=== PATIENT | male | born 1970 | race Caucasian/White ===

== ENCOUNTER 2017-10-14 12:57 | Emergency (ER) | payer OTHER ==
[2017-10-14] MEDS ORDERED: HYDROmorphone 1 MG/ML SYRINGE IM STA (14:16)
[2017-10-14] MEDS ORDERED: KETOROLAC 60 MG/2 ML VIAL IM STA (14:16)
[2017-10-14] MEDS ORDERED: TRIAMCINOLONE 40 MG/ML VIAL IM STA (14:16)
[2017-10-14] MEDS ORDERED: BUPIVACAINE 0.5%-EPI 1:200000 PF 30 ML VIAL SUBQ ONE (14:16)
--- NOTE | 2017-10-14 14:18 | ED Physician Documentation ---
PD HPI BACK PAIN - Stated complaint Stated Complaint: LOWER BACK PX - Chief complaint Chief Complaint: Back Pain - History obtained from History obtained from: Patient, Family - History of Present Illness Timing - onset: Other (He has chronic sharp back pain in the low back radiating to the right which is much worse over the last few days. He has recently been in physical therapy for same and has lidocaine patches which are not helping. He has tingling going down the right leg which is new but no saddle anesthesia or fevers, no incontinence.) Review of Systems Constitutional: denies: Fever, Chills Nose: denies: Rhinorrhea / runny nose, Congestion Cardiac: denies: Chest pain / pressure, Palpitations Respiratory: denies: Dyspnea, Cough PD PAST MEDICAL HISTORY - Past Medical History Past Medical History: Yes Endocrine/Autoimmune: Type 2 diabetes - Past Surgical History Past Surgical History: Yes - Present Medications Home Medications: Ambulatory Orders Medication Instructions Recorded Confirmed Alprazolam [Xanax] 6 mg PO DAILY 10/14/17 Aspirin 81 mg PO DAILY 10/14/17 Atorvastatin [Lipitor] 10 mg PO DAILY 10/14/17 Cyclobenzaprine [Flexeril] 10 mg PO TID PRN #20 tablet 10/14/17 Divalproex Sodium [Depakote] 1,000 mg PO BID 10/14/17 Levothyroxine [Synthroid] 25 mg PO DAILY 10/14/17 Lidocaine Patch 5% [Lidoderm Patch] 10/14/17 Meloxicam [Mobic] 7.5 mg PO BIDWM PRN #15 tablet 10/14/17 Oxycodone HCl/Acetaminophen 1 - 2 tab PO Q4H PRN #15 tablet 10/14/17 [Percocet 5-325 mg Tablet] Zolpidem Tartrate [Ambien] 20 mg PO DAILY PM 10/14/17 metFORMIN [Glucophage] 500 mg PO DAILY 10/14/17 - Allergies Allergies/Adverse Reactions: Allergies Allergy/AdvReac Type Severity Reaction Status Date / Time cephalexin [From Keflex] Allergy Anaphylaxis Verified 10/14/17 13:35 Penicillins Allergy Anaphylaxis Verified 10/14/17 13:35 - Social History Does the pt smoke?: Yes Smoking Status: Current every day smoker Does the pt drink ETOH?: No Does the pt have substance abuse?: No - Immunizations Immunizations are current?: Yes PD ED PE NORMAL - Vitals Vital signs reviewed: Yes - General General: Alert and oriented X 3, No acute distress - Abdomen Abdomen: Normal bowel sounds, Soft, Non tender - Back Back: Other (He is tender in the right sciatic notch, there is no deformity or midline tenderness. He winces with motion but is comfortable at rest. The patient has equal and normal Achilles and patellar reflexes bilaterally. Normal sensation in all areas of the legs. Patient denies saddle anesthesia. Normal strength in flexion-extension at the ankles, knees, and flexion of the hips.) - Neuro Neuro: Alert and oriented X 3, Normal speech Results - Vitals Vitals: Vital Signs - 24 hr 10/14/17 13:30 Temperature 36.7 C Heart Rate 90 Respiratory 18 Rate Blood Pressure 125/85 H O2 Saturation 97 Oxygen O2 Source Room air Procedures - General procedure General procedure: A trigger point injection was done in the right sciatic notch after alcohol prep utilizing 40 mg of triamcinolone mixed with 9 mL of 0.5% Marcaine with epinephrine. Departure - Departure Disposition: 01 Home, Self Care Clinical Impression: Sciatica Qualifiers: Laterality: right Qualified Code(s): M54.31 - Sciatica, right side Condition: Good Record reviewed to determine appropriate education?: Yes Instructions: ED Sciatica Prescriptions: Cyclobenzaprine [Flexeril] 10 mg PO TID PRN #20 tablet PRN Reason: Pain Meloxicam [Mobic] 7.5 mg PO BIDWM PRN #15 tablet PRN Reason: Pain Oxycodone HCl/Acetaminophen [Percocet 5-325 mg Tablet] 1 - 2 tab PO Q4H PRN #15 tablet PRN Reason: Pain Comments: Call your doctor to arrange a follow-up appointment, make the next available appointment. In the interim, return anytime if worse or if new symptoms develop. Do not drink or drive while taking narcotic pain medication. Note that many narcotic pain relievers also contain Tylenol/acetaminophen. Please ensure that your total dose of acetaminophen from all sources does not exceed 3 g (3000 mg) per day. You may get constipated while on this medication. Take a stool softener such as Colace twice a day while you are on it. Also add an tsee-dec-lmkfrkb laxative such as senna or MiraLAX on any day that you do not have a bowel movement. If you received a narcotic pain medication or sedative while in the emergency department, do not drive for the next 24 hours. Your blood pressure was elevated today on check into the emergency department. This does not mean that you have hypertension, it is a common phenomenon to come to the emergency department and have elevated blood pressure. I recommend that you see your primary care physician within the week to have it rechecked when you are feeling better.
[2017-10-14 14:41] VITALS: BP 155/106
[2017-10-14] MEDS ORDERED: BUPIVACAINE 0.5%-EPI 1:200000 PF 10 ML VIAL SUBQ ONE (15:00)
== END 2017-10-14 14:39 | disposition home or self-care (01) ==
LOC: ED 12:57
DX: M54.31 Sciatica, right side (principal); E11.9 Type 2 diabetes mellitus without complications; Z79.82 Long term (current) use of aspirin; F17.200 Nicotine dependence, unspecified, uncomplicated; Z79.84 Long term (current) use of oral hypoglycemic drugs
CPT/HCPCS: 20552; 96372; 99283; J1170

== ENCOUNTER 2017-11-14 07:50 | Outpatient (CLI) | payer OTHER ==
--- NOTE | 2017-11-14 09:13 | MRI Report ---
EXAM: MRI LUMBAR SPINE WITHOUT CONTRAST EXAM DATE: 11/14/2017 08:30 AM. CLINICAL HISTORY: 47-year-old with right-sided sciatica COMPARISON: None. TECHNIQUE: Multiplanar, multisequence T1-weighted and fluid-sensitive sequences of the lumbar spine f rom T12 to S1 without contrast. Other: None. FINDINGS: Spinal Cord: The conus terminates at L1-L2. The conus medullaris and cauda equina are unremarkable. Alignment: No definite scoliosis. There is 2-3 mm of grade 1 anterolisthesis of L5 on S1. Bone Marrow: Five big-yuw-gkexvci lumbar vertebral bodies are assumed. There is endplate edema seen a t L1-L2 and L2-L3 and to a lesser degree L3-L4 that may be degenerative in nature. No acute fracture. No marrow replacing lesion. Disk Levels/Facets: T12-L1: Unremarkable. L1-L2: Unremarkable. L2-L3: Mild loss of disk height and slight disk desiccation. Small posterior disk bulge and bilateral facet disease. No spinal canal stenosis. Minimal right and mild left neural foraminal narrowing. L3-L4: Mild loss of disk height. No significant disk desiccation. Small posterior disk bulge and bila teral facet disease. No spinal canal stenosis. Minimal bilateral neural foraminal narrowing. L4-L5: Mild loss of disk. No significant disk desiccation. Small posterior disk bulge and bilateral f acet disease. No spinal canal stenosis. Mild bilateral neural foraminal narrowing. L5-S1: Mild loss of disk height and slight disk desiccation. Small posterior disk bulge and bilateral facet disease. No spinal canal stenosis. Mild right and fxns-np-iipvkvww left neural foraminal narro wing. Musculature: Normal. No edema or fatty atrophy. Other: The partially visualized retroperitoneum is unremarkable. IMPRESSION: 1. There appears to be 2-3 mm of grade I anterolisthesis of L5 on S1. 2. There is edema seen along the superior endplates of L2, L3, L4 may be due to degenerative changes. 3. Multilevel degenerative changes with no high-grade areas of spinal canal stenosis. 4. Multilevel bilateral facet disease with mild to moderate neural foraminal narrowing at left L5-S1 and mild neural foraminal narrowing seen at left L2-L3, bilaterally at L4-L5, and right L5-S1. Comment: The following findings are so common in adults without low back pain that while we report th eir presence, they must be interpreted with caution and in the context of the clinical situation. (Re ander Chou et al, Spine 2001) Prevalence of findings in patients without low back pain: Disk degeneration (any evidence): 92% Disk desiccation/T2 signal loss: 83% Disk height loss: 56% Disk bulge: 64% Disk protrusion: 32% Annular tear/high intensity zone: 38% [facility] Referring Provider Line: [phone] SITE ID: [id number]
== END 2017-11-14 07:51 | disposition home or self-care (01) ==
LOC: DI 07:50
PROVIDERS: ATTEND Family Medicine
DX: M51.36 Other intervertebral disc degeneration, lumbar region (principal); M47.896 Other spondylosis, lumbar region; M51.37 Other intervertebral disc degeneration, lumbosacral region; M47.897 Other spondylosis, lumbosacral region; M43.17 Spondylolisthesis, lumbosacral region
CPT/HCPCS: 72148

== ENCOUNTER 2019-07-06 09:32 | Outpatient (CLI) | payer OTHER ==
[2019-07-06 12:34] LABS: BASOPHILS # (AUTO) 0.1 10^3/uL (0.0-0.1); BASOPHILS % (AUTO) 0.8 %; EOSINOPHILS # (AUTO) 0.1 10^3/uL (0.0-0.7); EOSINOPHILS % (AUTO) 1.1 %; HGB - HEMOGLOBIN 14.1 g/dL (14.0-18.0); LYMPHOCYTES # (AUTO) 2.5 10^3/uL (1.5-3.5); LYMPHOCYTES % (AUTO) 24.5 %; MEAN CORPUSCULAR HEMOGLOBIN 29.4 pg (27.0-31.0); MEAN CORPUSCULAR HGB CONC 32.8 g/dL (32.0-36.0); MEAN CORPUSCULAR VOLUME 89.8 fL (80.0-94.0); MEAN PLATELET VOLUME 12.8 fL (7.4-11.4); MONOCYTES % (AUTO) 9.4 %; NEUTROPHILS # (AUTO) 6.3 10^3/uL (1.5-6.6); PLT - PLATELET COUNT 158 10^3/uL (130-450); RED BLOOD COUNT 4.79 10^6/uL (4.70-6.10); RED CELL DISTRIBUTION WIDTH 12.8 % (12.0-15.0); WHITE BLOOD COUNT 10.2 x10^3/uL (4.8-10.8)
[2019-07-06 12:56] LABS: CALCIUM 9.4 mg/dL (8.5-10.3)
[2019-07-06 14:25] LABS: MICROALBUM/CREATININE RATIO,UR 5.3 ug/mg (<30.0); MICROALBUMIN,URINE 0.3 mg/dL (0-300.0)
[2019-07-06 15:45] LABS: HB2 TOTAL 14.3 g/dL; HEMOGLOBIN A1C 1.85 g/dL
[2019-07-06 18:46] LABS: ALBUMIN 3.8 g/dL (3.2-5.5); ALBUMIN/GLOBULIN RATIO 1.2 (1.0-2.2); BILIRUBIN,TOTAL 0.6 mg/dL (0.2-1.0)
== END 2019-07-06 23:59 | disposition home or self-care (01) ==
LOC: LAB.WCP 09:32
PROVIDERS: ATTEND Physician Assistant
DX: E11.9 Type 2 diabetes mellitus without complications (principal); E03.9 Hypothyroidism, unspecified
CPT/HCPCS: 36415; 80053; 82043; 82570; 83036; 84443; 85025

== ENCOUNTER 2019-07-19 07:57 | Outpatient (CLI) | payer OTHER ==
--- NOTE | 2019-07-19 16:12 | MRI Report ---
Reason: INTERNAL DERANGEMENT OF RT KNEE Procedure Date: 07/19/2019 Accession Number: [id number] / [id number] Procedure: MRI - Knee RT W/O CPT Code: Final Report FULL RESULT: EXAM: RIGHT KNEE MRI WITHOUT CONTRAST EXAM DATE: 07/19/2019 08:51 AM. CLINICAL HISTORY: Internal derangement of right knee. COMPARISON: None. TECHNIQUE: Multiplanar, multisequence T1-weighted and fluid-sensitive sequences of the knee without contrast. Other: None. FINDINGS: Cruciate ligaments: The anterior and posterior cruciate ligaments appear intact. Medial meniscus: Intact. No tear identified. Lateral meniscus: Intact. No tear identified. Collateral ligaments: There is some thickening and heterogenous signal at the anterior margin of the otherwise intact medial collateral ligament. Fibular collateral ligament appears intact. Bones and articular surfaces: Slight cartilage thinning and surface irregularity in the weightbearing medial and lateral compartment. Small amount of cartilage fissuring and irregularity at the medial trochlea with minimal subchondral edema. Minimal joint effusion. Extensor mechanism: The patellar tendon and quadriceps insertion appear intact. IMPRESSION: 1. Mild tricompartmental degenerative cartilage changes. 2. Some thickening and heterogenous signal involving upper fibers of the medial collateral ligament. Potentially scarring from previous injury. 3. Otherwise the menisci, cruciate and collateral ligaments appear intact. [facility]
== END 2019-07-19 07:58 | disposition home or self-care (01) ==
LOC: DI 07:57
PROVIDERS: ATTEND Physician Assistant
DX: M23.91 Unspecified internal derangement of right knee (principal); M17.11 Unilateral primary osteoarthritis, right knee

== ENCOUNTER 2019-07-27 14:57 | Emergency (ER) | payer OTHER ==
[2019-07-27] MEDS ORDERED: ELECTROLYTE-A SOLUTION 1,000 ML IV ONE (15:13)
--- NOTE | 2019-07-27 15:19 | ED Physician Documentation ---
History of Present Illness - Stated complaint Stated Complaint: CLAMMY SKIN/SYNCOPE - History obtained from History obtained from: Patient - History of Present Illness Timing: How many days ago (2-3) - Additonal information Additional information: 49-year-old male presents to the emergency department stating that his blood sugars been high for the past several days. He states his meter is been reading over 500 at home. Took Lantus today with no changes. Has had vomiting as well. No fevers. States today he felt lightheaded and dizzy when he stood up and then passed out. No head, neck or back pain. No abdominal pain. Worse with standing and better with rest. Review of Systems Ten Systems: 10 systems reviewed and negative Constitutional: denies: Fever, Chills Throat: denies: Sore throat Cardiac: denies: Chest pain / pressure Respiratory: denies: Cough GI: reports: Vomiting. denies: Diarrhea Skin: denies: Rash Musculoskeletal: denies: Neck pain, Back pain Neurologic: denies: Headache PD PAST MEDICAL HISTORY - Past Medical History Past Medical History: Yes Endocrine/Autoimmune: Type 2 diabetes - Past Surgical History Past Surgical History: Yes - Present Medications Home Medications: Ambulatory Orders Medication Instructions Recorded Confirmed Alprazolam [Xanax] 6 mg PO DAILY 10/14/17 Aspirin 81 mg PO DAILY 10/14/17 Atorvastatin [Lipitor] 10 mg PO DAILY 10/14/17 Cyclobenzaprine [Flexeril] 10 mg PO TID PRN #20 tablet 10/14/17 Divalproex Sodium [Depakote] 1,000 mg PO BID 10/14/17 Levothyroxine [Synthroid] 25 mg PO DAILY 10/14/17 Lidocaine Patch 5% [Lidoderm Patch] 10/14/17 Meloxicam [Mobic] 7.5 mg PO BIDWM PRN #15 tablet 10/14/17 Oxycodone HCl/Acetaminophen 1 - 2 tab PO Q4H PRN #15 tablet 10/14/17 [Percocet 5-325 mg Tablet] Zolpidem Tartrate [Ambien] 20 mg PO DAILY PM 10/14/17 metFORMIN [Glucophage] 500 mg PO DAILY 10/14/17 - Allergies Allergies/Adverse Reactions: Allergies Allergy/AdvReac Type Severity Reaction Status Date / Time cephalexin [From Keflex] Allergy Anaphylaxis Verified 07/27/19 15:18 Penicillins Allergy Anaphylaxis Verified 07/27/19 15:18 - Social History Does the pt smoke?: Yes Smoking Status: Current every day smoker Does the pt drink ETOH?: No Does the pt have substance abuse?: No - Immunizations Immunizations are current?: Yes PD ED PE NORMAL - Vitals Vital signs reviewed: Yes - General General: Alert and oriented X 3, No acute distress, Well developed/nourished - HEENT HEENT: PERRL, Moist mucous membranes, Other (dry lips and tongue) - Neck Neck: Supple, no meningeal sign - Cardiac Cardiac: RRR, Strong equal pulses - Respiratory Respiratory: No respiratory distress, Clear bilaterally - Abdomen Abdomen: Soft, Non tender, Non distended - Derm Derm: Warm and dry - Extremities Extremities: No edema - Neuro Neuro: Alert and oriented X 3 - Psych Psych: Normal mood, Normal affect Results - Vitals Vitals: Vital Signs - 24 hr 07/27/19 07/27/19 07/27/19 15:01 15:49 16:10 Temperature 36.1 C L Heart Rate 81 69 75 Respiratory 22 14 13 Rate Blood Pressure 183/97 H 133/80 H 133/80 H O2 Saturation 98 99 98 07/27/19 07/27/19 16:30 17:06 Temperature 36.7 C Heart Rate 70 78 Respiratory 16 23 Rate Blood Pressure 133/80 H 144/95 H O2 Saturation 97 98 Oxygen O2 Source Room air - EKG (time done) 1504 Rate: Rate (enter#) (83) Rhythm: NSR [place]: Normal Intervals: Normal HI QRS: Normal Ischemia: ST elevation c/w repol - Labs Labs: Laboratory Tests 07/27/19 07/27/19 07/27/19 15:14 15:14 15:22 WBC 14.4 H RBC 5.13 Hgb 15.0 Hct 44.3 MCV 86.4 MCH 29.2 MCHC 33.9 RDW 12.9 Plt Count 159 MPV 11.0 Neut # (Auto) 8.7 H Lymph # (Auto) 4.4 H [place] # (Auto) 0.9 Eos # (Auto) 0.1 Baso # (Auto) 0.1 Absolute Nucleated RBC 0.00 Nucleated RBC % 0.0 VBG pH 7.500 H VBG pCO2 33.7 L VBG pO2 43.9 VBG HCO3 25.7 VBG Total CO2 26.7 VBG O2 Saturation 87.5 H VBG Base Excess 3.1 H Sodium 131 L Potassium 4.0 Chloride 97 L Carbon Dioxide 21 Anion Gap 13.0 BUN 17 Creatinine 0.8 Estimated GFR (MDRD) 102 Glucose 448 H Calcium 10.0 Total Bilirubin 0.5 AST 17 ALT 14 Alkaline Phosphatase 64 Total Protein 7.1 Albumin 3.9 Globulin 3.2 Albumin/Globulin Ratio 1.2 Lipase 47 Urine Color Urine Clarity Urine pH Ur [place] Urine Protein Urine Glucose (UA) Urine Ketones Urine Occult Blood Urine Nitrite Urine Bilirubin Urine Urobilinogen Ur Leukocyte Esterase Ur Microscopic Review Urine Culture Comments Last Dose Date Last Dose Time Urine Opiates Screen Ur Oxycodone Screen Urine Methadone Screen Ur Propoxyphene Screen Ur Barbiturates Screen Valproic Acid Ur Tricyclics Screen Ur Phencyclidine Scrn Ur Amphetamine Screen U Methamphetamines Scrn U Benzodiazepines Scrn Urine Cocaine Screen U Cannabinoids Screen Serum Ketones NEGATIVE 07/27/19 07/27/19 15:22 16:13 WBC RBC Hgb Hct MCV MCH MCHC RDW Plt Count MPV Neut # (Auto) Lymph # (Auto) [place] # (Auto) Eos # (Auto) Baso # (Auto) Absolute Nucleated RBC Nucleated RBC % VBG pH VBG pCO2 VBG pO2 VBG HCO3 VBG Total CO2 VBG O2 Saturation VBG Base Excess Sodium Potassium Chloride Carbon Dioxide Anion Gap BUN Creatinine Estimated GFR (MDRD) Glucose Calcium Total Bilirubin AST ALT Alkaline Phosphatase Total Protein Albumin Globulin Albumin/Globulin Ratio Lipase Urine Color YELLOW Urine Clarity CLEAR Urine pH 6.5 Ur [place] 1.010 Urine Protein NEGATIVE Urine Glucose (UA) >=1000 H Urine Ketones TRACE Urine Occult Blood NEGATIVE Urine Nitrite NEGATIVE Urine Bilirubin NEGATIVE Urine Urobilinogen 0.2 (NORMAL) Ur Leukocyte Esterase NEGATIVE Ur Microscopic Review NOT INDICATED Urine Culture Comments NOT INDICATED Last Dose Date Not Reportable Last Dose Time Not Reportable Urine Opiates Screen NEGATIVE Ur Oxycodone Screen NEGATIVE Urine Methadone Screen NEGATIVE Ur Propoxyphene Screen NEGATIVE Ur Barbiturates Screen NEGATIVE Valproic Acid 88.0 Ur Tricyclics Screen NEGATIVE Ur Phencyclidine Scrn NEGATIVE Ur Amphetamine Screen NEGATIVE U Methamphetamines Scrn NEGATIVE U Benzodiazepines Scrn NEGATIVE Urine Cocaine Screen NEGATIVE U Cannabinoids Screen POSITIVE H Serum Ketones PD MEDICAL DECISION MAKING - ED course Complexity details: reviewed results, re-evaluated patient, considered differential, d/w patient, d/w family ED course: Patient feels much better after IV fluids. Blood sugar decreased with insulin. No evidence of hyperosmolar nonketotic state. No evidence of DKA. Tolerating p.o. without difficulty. We will have him follow-up with his doctor to adjust his insulin. Patient counseled regarding signs and symptoms for which I believe and urgent re-evaluation would be necessary. Patient with good understanding of and agreement to plan and is comfortable going home at this time This document was made in part using voice recognition software. While efforts are made to proofread this document, sound alike and grammatical errors may occur. Departure - Departure Disposition: 01 Home, Self Care Clinical Impression: Hyperglycemia, Dehydration, Vasovagal syncope Condition: Good Instructions: ED Hyperglycemia Diabetic, ED Dehydration, ED Syncope Vasovagal Follow-Up: Luly Rice PA [Primary Care Provider] - Within 3 Days Comments: Follow-up with your doctor within 3 days to readjust your medications. Return if you worsen. Discharge Date/Time: 07/27/19 17:18
[2019-07-27 15:33] LABS: BASOPHILS # (AUTO) 0.1 10^3/uL (0.0-0.1); BASOPHILS % (AUTO) 0.7 %; EOSINOPHILS # (AUTO) 0.1 10^3/uL (0.0-0.7); EOSINOPHILS % (AUTO) 0.8 %; LYMPHOCYTES # (AUTO) 4.4 10^3/uL (1.5-3.5); LYMPHOCYTES % (AUTO) 30.5 %; MEAN CORPUSCULAR HEMOGLOBIN 29.2 pg (27.0-31.0); MEAN CORPUSCULAR HGB CONC 33.9 g/dL (32.0-36.0); MEAN CORPUSCULAR VOLUME 86.4 fL (80.0-94.0); MONOCYTES # (AUTO) 0.9 10^3/uL (0.0-1.0); MONOCYTES % (AUTO) 6.2 %; NEUTROPHILS # (AUTO) 8.7 10^3/uL (1.5-6.6); NEUTROPHILS % (AUTO) 60.5 %; PLT - PLATELET COUNT 159 10^3/uL (130-450); RED BLOOD COUNT 5.13 10^6/uL (4.70-6.10); RED CELL DISTRIBUTION WIDTH 12.9 % (12.0-15.0); WHITE BLOOD COUNT 14.4 x10^3/uL (4.8-10.8)
[2019-07-27 15:34] LABS: VBG PCO2 33.7 mmHg (41-51); VBG PH 7.5 (7.31-7.41); VBG PO2 43.9 mmHg (25-47)
[2019-07-27 15:35] LABS: VBG BASE EXCESS 3.1 mmol/L (-2 - +2); VBG TOTAL CO2 26.7 mmol/L (24-29)
[2019-07-27 15:45] LABS: ALBUMIN 3.9 g/dL (3.2-5.5); ALBUMIN/GLOBULIN RATIO 1.2 (1.0-2.2); ALKALINE PHOSPHATASE 64 IU/L (42-121); ALT ALANINE AMINOTRANSFERASE 14 IU/L (10-60); AST ASPARTATE AMINOTRANSFERASE 17 IU/L (10-42); BILIRUBIN,TOTAL 0.5 mg/dL (0.2-1.0); BUN - BLOOD UREA NITROGEN 17 mg/dL (6-20); CARBON DIOXIDE - CO2 21 mmol/L (21-32); CHLORIDE 97 mmol/L (101-111); CREATININE 0.8 mg/dL (0.6-1.2); GFR - MDRD 102 (>89); GLUCOSE 448 mg/dL (70-100); LIPASE 47 U/L (22-51); SODIUM 131 mmol/L (135-145); TOTAL PROTEIN 7.1 g/dL (6.7-8.2)
[2019-07-27] MEDS ORDERED: INSULIN REGULAR HUMAN 100 UNIT/1 ML 10 ML MDV IVP STA (15:46)
[2019-07-27 15:47] LABS: KETONES, SERUM (ACETEST) NEGATIVE (NEGATIVE)
[2019-07-27] MEDS ORDERED: ELECTROLYTE-A SOLUTION 1,000 ML IV SCH (16:00)
[2019-07-27 16:15] LABS: MUDS CUTOFF CONCENTRATIONS CUTOFF CONC BELOW:
[2019-07-27 16:25] LABS: BILIRUBIN,URINE NEGATIVE (NEGATIVE); CLARITY,URINE CLEAR (CLEAR); GLUCOSE, URINE (UA) >=1000 mg/dL (NEGATIVE); KETONES,URINE (UA) TRACE mg/dL (NEGATIVE); LEUKOCYTE ESTERASE, URINE NEGATIVE (NEGATIVE); NITRITE,URINE NEGATIVE (NEGATIVE); OCCULT BLOOD,URINE NEGATIVE (NEGATIVE); PH,URINE 6.5 PH (5.0-7.5); PROTEIN,URINE NEGATIVE (NEGATIVE); UROBILINOGEN,URINE 0.2 (NORMAL) E.U./dL (NORMAL)
[2019-07-27 16:36] LABS: AMPHETAMINE SCREEN,URINE NEGATIVE (NEGATIVE); BENZODIAZEPINES SCREEN, URINE NEGATIVE (NEGATIVE); COCAINE SCREEN URINE NEGATIVE (NEGATIVE); METHADONE SCREEN, URINE NEGATIVE (NEGATIVE); METHAMPHETAMINES SCREEN, URINE NEGATIVE (NEGATIVE); OPIATE SCREEN, URINE NEGATIVE (NEGATIVE); OXYCODONE SCREEN, URINE NEGATIVE (NEGATIVE); PROPOXYPHENE SCREEN, URINE NEGATIVE (NEGATIVE); TRICYCLIC ANTIDEPRESSANT,URINE NEGATIVE (NEGATIVE)
[2019-07-27] MEDS ORDERED: IBUPROFEN 800 MG TABLET PO STA (17:12)
[2019-07-27 17:18] VITALS: BP 144/95
== END 2019-07-27 17:18 | disposition home or self-care (01) ==
LOC: ED 14:57
DX: E11.65 Type 2 diabetes mellitus with hyperglycemia (principal); E86.0 Dehydration; R55 Syncope and collapse; F17.200 Nicotine dependence, unspecified, uncomplicated; Z79.4 Long term (current) use of insulin
CPT/HCPCS: 36415; 80053; 80164; 81003; 82009; 82803; 83690; 85025; 93005; 96360; 99284; A9270; J1815; 80306; 81001; 87086

== ENCOUNTER 2020-03-14 08:00 | Outpatient (CLI) | payer OTHER ==
[2020-03-14 18:19] LABS: BASOPHILS # (AUTO) 0.1 10^3/uL (0.0-0.1); BASOPHILS % (AUTO) 0.6 %; EOSINOPHILS # (AUTO) 0.2 10^3/uL (0.0-0.7); EOSINOPHILS % (AUTO) 1.9 %; HGB - HEMOGLOBIN 13.3 g/dL (14.0-18.0); LYMPHOCYTES # (AUTO) 3.7 10^3/uL (1.5-3.5); LYMPHOCYTES % (AUTO) 29.3 %; MEAN CORPUSCULAR HEMOGLOBIN 30.4 pg (27.0-31.0); MEAN CORPUSCULAR HGB CONC 32.4 g/dL (32.0-36.0); MEAN CORPUSCULAR VOLUME 93.8 fL (80.0-94.0); MEAN PLATELET VOLUME 13.3 fL (7.4-11.4); MONOCYTES % (AUTO) 7.5 %; NEUTROPHILS # (AUTO) 7.6 10^3/uL (1.5-6.6); NEUTROPHILS % (AUTO) 59.6 %; PLT - PLATELET COUNT 132 10^3/uL (130-450); RED BLOOD COUNT 4.37 10^6/uL (4.70-6.10); RED CELL DISTRIBUTION WIDTH 13.2 % (12.0-15.0); WHITE BLOOD COUNT 12.8 x10^3/uL (4.8-10.8)
[2020-03-14 18:24] LABS: ALBUMIN 3.7 g/dL (3.2-5.5); ALBUMIN/GLOBULIN RATIO 1.3 (1.0-2.2); ALKALINE PHOSPHATASE 54 IU/L (42-121); ALT ALANINE AMINOTRANSFERASE 11 IU/L (10-60); AST ASPARTATE AMINOTRANSFERASE 14 IU/L (10-42); BILIRUBIN,TOTAL 0.8 mg/dL (0.2-1.0); BUN - BLOOD UREA NITROGEN 15 mg/dL (6-20); CARBON DIOXIDE - CO2 25 mmol/L (21-32); CHLORIDE 101 mmol/L (101-111); CHOL/HDL RATIO 5.6 (<5.0); CHOLESTEROL 190 mg/dL; CREATININE 0.9 mg/dL (0.6-1.2); GLUCOSE 165 mg/dL (70-100); HDL CHOLESTEROL 34 mg/dL; LDL CHOLESTEROL,CALCULATED 124 mg/dL; LDL/HDL RATIO 3.6 (<3.6); SODIUM 135 mmol/L (135-145); TOTAL PROTEIN 6.6 g/dL (6.7-8.2); VLDL CHOLESTEROL 32 mg/dL
[2020-03-14 18:31] LABS: CREATININE,URINE 267.6 mg/dL; MICROALBUMIN,URINE 1.6 mg/dL (0-300.0)
[2020-03-14 18:46] LABS: HB2 TOTAL 13.7 g/dL; HEMOGLOBIN A1C 1.63 g/dL
== END 2020-03-14 23:59 | disposition home or self-care (01) ==
LOC: LAB.WCP 08:00
PROVIDERS: ATTEND Family Medicine
DX: E11.22 Type 2 diabetes mellitus with diabetic chronic kidney disease (principal); N18.2 Chronic kidney disease, stage 2 (mild); E03.9 Hypothyroidism, unspecified
CPT/HCPCS: 36415; 80053; 80061; 82043; 82570; 83036; 83721; 84443; 85025

== ENCOUNTER 2020-04-28 07:57 | Outpatient (CLI) | payer OTHER ==
--- NOTE | 2020-04-28 12:24 | XRAY Report ---
PROCEDURE: Ribs w/PA Chest RT INDICATIONS: RIB PAIN, RIGHT SIDED TECHNIQUE: 3 views of the right ribs were acquired, along with a single view chest. COMPARISON: none FINDINGS: Surgical changes and devices: None. Bones and chest wall: No fractures or dislocations. No suspicious bony lesions. Overlying soft tis sues appear unremarkable. Lungs and pleura: No pleural effusions or pneumothorax. Lungs appear clear. Mediastinum: Mediastinal contours appear normal. Heart size is normal. IMPRESSION: No visualized acute fracture or dislocation. However, occult injury cannot be excluded. Recommend zhane rt interval imaging follow-up in 7-10 days as clinically indicated for additional evaluation. Reviewed by: Amanda Salgado MD on 04/28/2020 12:23 PM PDT Approved by: Amanda Salgado MD on 04/28/2020 12:23 PM PDT Station ID: [id number]
--- NOTE | 2020-04-28 12:28 | XRAY Report ---
PROCEDURE: Shoulder 3 View LT INDICATIONS: IMPINGEMENT SYNDROME OF SHOULDER PAIN TECHNIQUE: 3 views of the shoulder were acquired. COMPARISON: None. FINDINGS: Bones: No fractures or dislocations. No suspicious bony lesions. Visualized ribs appear intact. M oderate acromiclavicular narrowing. Humeral head is high riding. Soft tissues: No suspicious soft tissue calcifications. IMPRESSION: Moderate acromiclavicular narrowing. Humeral head is high riding, which can be seen wit h rotator cuff pathology. Reviewed by: Amanda Salgado MD on 04/28/2020 12:27 PM PDT Approved by: Amanda Salgado MD on 04/28/2020 12:27 PM PDT Station ID: [id number]
== END 2020-04-28 07:58 | disposition home or self-care (01) ==
LOC: DI 07:57
PROVIDERS: ATTEND Physician Assistant
DX: R07.81 Pleurodynia (principal); M75.42 Impingement syndrome of left shoulder

== ENCOUNTER 2020-06-18 14:13 | Outpatient (CLI) | payer OTHER ==
--- NOTE | 2020-06-18 16:57 | MRI Report ---
PROCEDURE: Shoulder LT W/O INDICATIONS: LT SHOULDER PAIN TECHNIQUE: Noncontrast oblique coronal T2 fast spin echo with fat saturation, oblique sagittal T1 spin echo and T2 fast spin echo with fat saturation, axial T1 spin echo and T2 fast spin echo with fat saturation t hrough the shoulder. COMPARISON: Left shoulder x-ray 04/28/2020. FINDINGS: Image quality: Diagnostic. Rotator cuff: There is tendinopathy of the supraspinatus and infraspinatus. There is mild interstiti al partial tearing at the insertion of the supraspinatus. This measures approximately 1.0 cm in anter ior posterior dimension. The infraspinatus appears intact. The subscapularis and teres minor also keli ear intact. No rotator cuff muscle atrophy on sagittal images. Bones and bursae: No bone marrow contusions or fractures. There is moderate acromioclavicular joint degeneration with mild periarticular bone marrow edema. The acromion demonstrates conventional anato my, without an os acromiale. Trace subacromial/subdeltoid bursal fluid is present. Capsule and soft tissues: In the absence of intra-articular contrast, the labrum and glenohumeral li gaments are not well evaluated. There is degenerative signal within the posterosuperior labrum. The long head of the biceps tendon demonstrates normal location and morphology. The rotator interval keli ears normal, without fibrosis. IMPRESSION: 1. Tendinopathy of the superior cuff with mild interstitial partial tearing at the insertion of the s upraspinatus. No full-thickness rotator cuff tear or tendon retraction. 2. Moderate acromioclavicular joint degeneration with trace subacromial/subdeltoid bursal fluid. 3. Limited evaluation of the labrum in the absence of intra-articular contrast. There is degenerative signal within the posterosuperior labrum suggestive of degenerative tearing. Reviewed by: Sean Dennison MD on 06/18/2020 4:56 PM [facility] Approved by: Sean Dennison MD on 06/18/2020 4:56 PM [facility] Station ID: [id number]
== END 2020-06-18 14:14 | disposition home or self-care (01) ==
LOC: DI 14:13
PROVIDERS: ATTEND Physician Assistant
DX: M75.112 Incomplete rotator cuff tear or rupture of left shoulder, not specified as traumatic (principal); M19.012 Primary osteoarthritis, left shoulder

== ENCOUNTER 2020-07-18 17:53 | Outpatient (CLI) | payer OTHER ==
--- NOTE | 2020-07-18 09:15 | XRAY Report ---
PROCEDURE: Cervical Spine Complete INDICATIONS: NECK PAIN TECHNIQUE: 5 view(s) of the cervical spine were acquired. COMPARISON: None. FINDINGS: Bones: No fractures or dislocations to the T1 level. The lateral masses of C1 appear intact on the odontoid view. No suspicious bony lesions. There is a minimal degree of degenerative endplate osteo phyte formation at the mid cervical spine. No subluxation is found. Minimal facet osteoarthritis is p resent over the middle and lower thirds of the cervical spine without significant foraminal stenosis. Note is made, however, on the frontal view asymmetrically prominent osteophytic spurring presumably from the facet joint at C2-C3 on the left. The oblique view which allows visualization of the left ne ural foramen at this level show significant focal stenosis. Soft tissues: No prevertebral soft tissue swelling. IMPRESSION: 1. No trauma found. Only a small degree of degenerative disc disease and facet osteoarthritis is seen over the middle and lower thirds of the cervical spine as discussed, without definite evidence of sp inal or foraminal stenosis. 2. Focal foraminal stenosis on the left is seen at the C2-C3 neural foramen associated with prominent asymmetric osteophytic spurring visualized in this area on the frontal projection. There is therefor e likelihood of significant impingement on the course of the left C3 nerve root. Please correlate cli nically for evidence of C3 left-sided nerve root symptomatology. Reviewed by: Priyank Boggs MD on 07/18/2020 9:14 AM PST Approved by: Priyank Boggs MD on 07/18/2020 9:14 AM PST Station ID: [id number]
== END 2020-07-18 23:59 | disposition home or self-care (01) ==
LOC: DI.N 17:53
PROVIDERS: ATTEND Orthopaedic Surgery
DX: M50.320 Other cervical disc degeneration, mid-cervical region, unspecified level (principal); M48.02 Spinal stenosis, cervical region; M25.78 Osteophyte, vertebrae

== ENCOUNTER 2020-08-20 08:00 | Outpatient (CLI) | payer OTHER ==
[2020-08-20 18:41] LABS: ALBUMIN/GLOBULIN RATIO 1.3 (1.0-2.2); BILIRUBIN,TOTAL 0.5 mg/dL (0.2-1.0); CALCIUM 9.7 mg/dL (8.5-10.3); CREATININE 0.9 mg/dL (0.6-1.2); TOTAL PROTEIN 7.1 g/dL (6.7-8.2)
[2020-08-20 18:43] LABS: BASOPHILS # (AUTO) 0.1 10^3/uL (0.0-0.1); BASOPHILS % (AUTO) 0.7 %; EOSINOPHILS # (AUTO) 0.2 10^3/uL (0.0-0.7); EOSINOPHILS % (AUTO) 1.6 %; HGB - HEMOGLOBIN 13.6 g/dL (14.0-18.0); LYMPHOCYTES # (AUTO) 4.1 10^3/uL (1.5-3.5); LYMPHOCYTES % (AUTO) 32.4 %; MEAN CORPUSCULAR HEMOGLOBIN 30.8 pg (27.0-31.0); MEAN CORPUSCULAR HGB CONC 33.1 g/dL (32.0-36.0); MEAN CORPUSCULAR VOLUME 93.2 fL (80.0-94.0); MONOCYTES # (AUTO) 1.1 10^3/uL (0.0-1.0); MONOCYTES % (AUTO) 8.3 %; NEUTROPHILS % (AUTO) 55.3 %; PLT - PLATELET COUNT 170 10^3/uL (130-450); RED BLOOD COUNT 4.41 10^6/uL (4.70-6.10); RED CELL DISTRIBUTION WIDTH 13.3 % (12.0-15.0); WHITE BLOOD COUNT 12.6 x10^3/uL (4.8-10.8)
[2020-08-20 19:31] LABS: HEMOGLOBIN A1c% 6.1 % (4.27-6.07)
[2020-08-20 19:44] LABS: CREATININE,URINE 189.6 mg/dL; MICROALBUM/CREATININE RATIO,UR 5.8 ug/mg (<30.0); MICROALBUMIN,URINE 1.1 mg/dL (0-300.0)
== END 2020-08-20 23:59 | disposition home or self-care (01) ==
LOC: LAB.WCP 08:00
PROVIDERS: ATTEND Physician Assistant
DX: E11.9 Type 2 diabetes mellitus without complications (principal)
CPT/HCPCS: 36415; 80053; 82043; 82570; 83036; 85025

== ENCOUNTER 2020-08-29 07:38 | Outpatient (CLI) | payer OTHER ==
[2020-08-29 12:35] LABS: CHOL/HDL RATIO 6.3 (<5.0); CHOLESTEROL 200 mg/dL; HDL CHOLESTEROL 32 mg/dL; LDL CHOLESTEROL,CALCULATED 137 mg/dL; LDL/HDL RATIO 4.3 (<3.6); VALPROIC ACID (DEPAKOTE) 71.1 ug/mL; VLDL CHOLESTEROL 31 mg/dL
== END 2020-08-29 23:59 ==
LOC: LAB.WCP 07:38
PROVIDERS: ATTEND Physician Assistant
DX: E11.9 Type 2 diabetes mellitus without complications (principal); E03.9 Hypothyroidism, unspecified; Z79.899 Other long term (current) drug therapy
CPT/HCPCS: 36415; 80061; 80164; 83721; 84443

== ENCOUNTER 2020-09-01 14:49 | Outpatient (CLI) | payer OTHER ==
--- NOTE | 2020-09-01 16:22 | XRAY Report ---
PROCEDURE: Knee 4 View LT INDICATIONS: L KNEE PX TECHNIQUE: 3 views of the left knee(s) were acquired. COMPARISON: None. FINDINGS: Bones: No fractures or dislocations. No suspicious bony lesions. Soft tissues: Mild joint effusion. No suspicious soft tissue calcifications. IMPRESSION: Mild effusion. No visualized acute fracture or dislocation. However, occult injury canno t be excluded. Recommend short interval imaging follow-up in 7-10 days as clinically indicated for ad ditional evaluation. Reviewed by: Amanda Salgado MD on 09/01/2020 4:21 PM PST Approved by: Amanda Salgado MD on 09/01/2020 4:21 PM PST Station ID: [id number]
== END 2020-09-01 23:59 | disposition home or self-care (01) ==
LOC: DI.N 14:49
PROVIDERS: ATTEND Physician Assistant
DX: M25.462 Effusion, left knee (principal)

== ENCOUNTER 2020-09-30 11:10 | Emergency (ER) | payer OTHER ==
[2020-09-30] MEDS ORDERED: KETOROLAC 60 MG/2 ML VIAL IM STA (12:05)
[2020-09-30] MEDS ORDERED: predniSONE 20 MG TABLET PO STA (12:06)
--- NOTE | 2020-09-30 12:09 | ED Physician Documentation ---
History of Present Illness - Stated complaint Stated Complaint: BACK PX - Chief complaint Chief Complaint: Back Pain - Additonal information Additional information: 50-year-old diabetic male presents the emergency department with acute on chr onic low back pain that he feels radiates to both of his legs. He does report a history of sciatica in the past. And occasionally he has had flares. There are times in the past in which he has sought pain relief through pain management physician. The last MRI of his back was in 2018 which showed general degenerative disc disease and anterior spondylolisthesis without any significant central canal stenosis. This gentleman's flare began about 2 weeks ago when he started wearing a left- sided knee brace. He denies any fevers or saddle anesthesia. No loss of bowel or bladder function. He has been using Aleve without relief of pain. In addition to that he is using lidocaine patches soaking in a hot tub and occasionally using ice. Though he is a diabetic he reports good glucose control with a recent A1c less than 7. He typically checks his blood sugars 6 or more times a day. Review of Systems Constitutional: denies: Fever, Chills, Myalgias Eyes: reports: Reviewed and negative Ears: reports: Reviewed and negative Nose: reports: Reviewed and negative Throat: reports: Reviewed and negative Cardiac: reports: Reviewed and negative Respiratory: reports: Reviewed and negative GI: reports: Reviewed and negative : reports: Reviewed and negative Skin: reports: Reviewed and negative Musculoskeletal: reports: Back pain, Joint pain (left knee) Neurologic: reports: Reviewed and negative PD PAST MEDICAL HISTORY - Past Medical History Past Medical History: Yes Cardiovascular: High cholesterol Respiratory: None Neuro: Tremors Endocrine/Autoimmune: Type 2 diabetes, HyPOthyroidism GI: Ulcers : Benign prostate hypertrophy HEENT: Chronic hearing loss Psych: Anxiety, Bipolar disorder Musculoskeletal: Osteoarthritis, Chronic back pain Derm: None - Past Surgical History Past Surgical History: Yes Ortho: Arthroscopic surgery - Present Medications Home Medications: Ambulatory Orders Medication Instructions Recorded Confirmed Alprazolam [Xanax] 6 mg PO DAILY 10/14/17 09/30/20 Atorvastatin [Lipitor] 10 mg PO DAILY 10/14/17 09/30/20 Divalproex Sodium [Depakote] 1,000 mg PO BID 10/14/17 09/30/20 Lidocaine Patch 5% [Lidoderm Patch] 1 patch TOP DAILY PRN 10/14/17 09/30/20 Zolpidem Tartrate [Ambien] 20 mg PO DAILY PM 10/14/17 09/30/20 Cyclobenzaprine [Flexeril] 10 mg PO TID PRN #20 tab 09/30/20 Insulin Aspart [NovoLOG] 5 units SQ TID 09/30/20 09/30/20 Sitagliptin Phos/Metformin HCl 1 each PO BID 09/30/20 09/30/20 [Janumet 50-1,000 mg Tablet] predniSONE [Deltasone] 40 mg PO DAILY #6 tab 09/30/20 - Allergies Allergies/Adverse Reactions: Allergies Allergy/AdvReac Type Severity Reaction Status Date / Time cephalexin [From Keflex] Allergy Anaphylaxis Verified 09/30/20 11:19 chocolate flavor Allergy Unknown Verified 09/30/20 11:19 Penicillins Allergy Anaphylaxis Verified 09/30/20 11:19 bees Allergy Unknown Uncoded 08/02/19 08:49 - Social History Does the pt smoke?: Yes Smoking Status: Current every day smoker Does the pt drink ETOH?: No Does the pt have substance abuse?: No - Immunizations Immunizations are current?: Yes PD ED PE EXPANDED - General General: Alert, No acute distress - Cardiac Cardiac: Regular Rhythm, Radial strong equal, Pedal strong equal, Cap refill < 2 sec - Respiratory Respiratory: Clear to ausultation tyler. No: Distress, Labored - Abdomen Abdomen: Normal Bowel sounds. No: Tender to palpation - Back Back: Soft tissue tenderness (Midline lower lumbar tenderness to palpation radiates across the paraspinous muscles. Motor strength 5/5 bilateral lower extremities. Antalgic gait and walks with a limp secondary to the knee brace. No paresthesias. Able to walk on heels and toes.) - Derm Derm: Normal color, Warm and dry Results - Vitals Vitals: Vital Signs - 24 hr 09/30/20 11:19 Temperature 36.3 C L Heart Rate 77 Respiratory 18 Rate Blood Pressure 129/69 O2 Saturation 97 Oxygen O2 Source Room air PD MEDICAL DECISION MAKING - ED course Complexity details: reviewed results, re-evaluated patient, considered differential, d/w patient ED course: Well-appearing 50-year-old male with acute on chronic low back pain that r adiates across the paraspinous muscles to both his legs. Positive straight leg exam bilaterally. History is consistent with sciatica. He does not have any red flags of back pain though he is a diabetic. Reassuringly however he does report good glucose control at home. Though he is a diabetic I do feel that he would benefit from a short course of steroids as well as a muscle relaxer. Though his pain has been managed with narcotics in the past I would like to defer that treatment today unless the conservative treatment with a short course of steroids and muscle relaxer does not work. Departure - Departure Disposition: Home, Self Care Clinical Impression: Acute exacerbation of chronic low back pain Condition: Stable Record reviewed to determine appropriate education?: Yes Instructions: ED Back Care Tips Prescriptions: predniSONE [Deltasone] 40 mg PO DAILY #6 tab Cyclobenzaprine [Flexeril] 10 mg PO TID PRN #20 tab PRN Reason: Spasms Comments: Ramirez I hope that your back pain is starting to resolve shortly. I have prescribed Flexeril which is a muscle relaxer. This should help manage the pain at home. Be cautious using it and do not drive after taking it as it can cause sedation and may legally impair your ability to drive or work. I also feel that the pain can be controlled over the next 2 to 3 days with a short burst of steroids. We have given you your first dose here in the emergency department. Tomorrow morning please begin taking the prednisone 40 mg daily for an additional 3 days. If at any point you find that these are not helping to control your pain, you have loss of coordination of bowel or bladder function, or develop any fevers please return immediately to the emergency department. Please keep a close check of your blood sugars over the next 4 to 5 days. The steroids themselves can cause a spike in your blood sugars. If they are higher than 450 please return immediately to the emergency department.
[2020-09-30 12:28] VITALS: BP 144/86
== END 2020-09-30 12:31 | disposition home or self-care (01) ==
LOC: ED 11:10
DX: M54.42 Lumbago with sciatica, left side (principal); M54.41 Lumbago with sciatica, right side; G89.29 Other chronic pain; E11.9 Type 2 diabetes mellitus without complications; Z79.84 Long term (current) use of oral hypoglycemic drugs; F17.200 Nicotine dependence, unspecified, uncomplicated
CPT/HCPCS: 96372; 99282; 99284; J7512

== ENCOUNTER 2021-06-22 10:16 | Emergency (ER) | payer OTHER ==
--- NOTE | 2021-06-22 13:06 | ED Physician Documentation ---
PD HPI UPPER EXT INJURY - Stated complaint Stated Complaint: PAININ L ARM AND SHOULDER - Chief complaint Chief Complaint: Ext Problem - History obtained from History obtained from: Patient - Additonal information Additional information: 51-year-old gentleman with schizophrenia had a major vascular injury of his left arm about 5 years ago. Subsequently vascular intervention failed. More recently though he has severe pain from the left neck down the left shoulder. Feels like shocking and burning in his left arm. It is worse if he lifts the left arm. He has failed treatment with NSAIDs, Tylenol, muscle relaxers. Previous work-up includes DVT ultrasound of the left arm with negative results, x-rays of the left arm and shoulder with unclear results. He is scheduled for what sounds like EMG at [facility] for this issue. Review of Systems Constitutional: reports: Reviewed and negative Eyes: reports: Reviewed and negative Nose: reports: Reviewed and negative Throat: reports: Reviewed and negative Cardiac: reports: Reviewed and negative PD PAST MEDICAL HISTORY - Past Medical History Cardiovascular: High cholesterol Respiratory: None Neuro: Tremors Endocrine/Autoimmune: Type 2 diabetes, HyPOthyroidism GI: Ulcers : Benign prostate hypertrophy HEENT: Chronic hearing loss Psych: Anxiety, Bipolar disorder Musculoskeletal: Osteoarthritis, Chronic back pain Derm: None - Past Surgical History Past Surgical History: Yes Ortho: Arthroscopic surgery - Present Medications Home Medications: Ambulatory Orders Medication Instructions Recorded Confirmed Alprazolam [Xanax] 6 mg PO DAILY 10/14/17 09/30/20 Atorvastatin [Lipitor] 10 mg PO DAILY 10/14/17 09/30/20 Divalproex Sodium [Depakote] 1,000 mg PO BID 10/14/17 09/30/20 Lidocaine Patch 5% [Lidoderm Patch] 1 patch TOP DAILY PRN 10/14/17 09/30/20 Zolpidem Tartrate [Ambien] 20 mg PO DAILY PM 10/14/17 09/30/20 Cyclobenzaprine [Flexeril] 10 mg PO TID PRN #20 tab 09/30/20 Insulin Aspart [NovoLOG] 5 units SQ TID 09/30/20 09/30/20 Sitagliptin Phos/Metformin HCl 1 each PO BID 09/30/20 09/30/20 [Janumet 50-1,000 mg Tablet] predniSONE [Deltasone] 40 mg PO DAILY #6 tab 09/30/20 Oxycodone HCl/Acetaminophen 1 - 2 each PO Q6H PRN #14 tablet 06/22/21 [Percocet 5-325 mg Tablet] - Allergies Allergies/Adverse Reactions: Allergies Allergy/AdvReac Type Severity Reaction Status Date / Time cephalexin [From Keflex] Allergy Anaphylaxis Verified 06/22/21 10:33 chocolate flavor Allergy Unknown Verified 06/22/21 10:33 Penicillins Allergy Anaphylaxis Verified 06/22/21 10:33 bees Allergy Unknown Uncoded 06/22/21 10:33 - Social History Does the pt smoke?: Yes Smoking Status: Current every day smoker Does the pt drink ETOH?: No Does the pt have substance abuse?: No - Immunizations Immunizations are current?: Yes PD ED PE NORMAL - Vitals Vital signs reviewed: Yes - General General: Alert and oriented X 3, No acute distress - HEENT HEENT: PERRL, EOMI - Neck Neck: Supple, no meningeal sign, No bony TTP, Other (He appears uncomfortable and winces with any motion of the neck or left arm. The left shoulder itself is nontender but he does have diffuse muscular tenderness about the shoulder girdle and trapezius on the left.) - Extremities Extremities: Other (He has relative numbness over the left deltoid. Weak lines tender strength on the left. Weak thumb extension on the left. Excellent radial pulses on both sides.) - Neuro Neuro: Alert and oriented X 3, Normal speech - Psych Psych: Normal mood, Normal affect Results - Vitals Vitals: Vital Signs - 24 hr 06/22/21 06/22/21 10:22 12:56 Temperature 36.6 C 36.6 C Heart Rate 81 76 Respiratory 20 16 Rate Blood Pressure 151/90 H 156/84 H O2 Saturation 100 99 Oxygen O2 Source Room air PD MEDICAL DECISION MAKING - ED course ED course: This actually seems more like a cervical radiculopathy than an exacerbation of his prior vascular issue. Steroid taper was considered, but given his underlying schizophrenia and past bad side effects with same we agreed not to prescribe. I am prescribing a short course of short-acting opioid pain medication for this patient. 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 I have discussed that the opioids are for short term therapy only, and will not be refilled from the ED. Departure - Departure Disposition: 01 Home, Self Care Clinical Impression: Cervical radiculopathy Condition: Good Record reviewed to determine appropriate education?: Yes Instructions: ED Cervical Radiculopathy Prescriptions: Oxycodone HCl/Acetaminophen [Percocet 5-325 mg Tablet] 1 - 2 each PO Q6H PRN #14 tablet PRN Reason: pain Comments: Prescription sent electronically to [facility] in [place]. As discussed this seems more consistent with a cervical radiculopathy on the left, also known as a pinched nerve in your neck. Follow-up for the EMG testing as you are scheduling. Follow-up with your doctor as well. Return for new or worsening symptoms. Also reasonable to consider MRI of the neck. I am prescribing a short course of narcotic pain medication for you. These are potentially dangerous and addictive medications that should be used carefully. These medications may constipate you. Take an nsaw-hvm-bjbmxbc stool softener (docusate) twice daily with plenty of water while taking these medications. If you go 24 hours without a bowel movement, take hity-ngc-fhifdwn miralax, per package instructions. Do not drink or drive while taking these medications. If you received narcotic or sedating medications while in the emergency department, do not drive for 24 hours. Store this medication in a safe, secure place and out of reach of children. It is a violation of federal law to give or sell this medication to another person or to use in a manner other than prescribed. The ED will not refill narcotic prescriptions, including prescriptions lost or stolen. To dispose of unwanted medications: 1. [facility] [address] in [place] has a medication drop box. They accept prescription medications (in pill form) Tuesday through Tuesday 9:00 a.m. to 5:00 p.m. 2. The [facility] [employer] accepts prescription medications (in pill form only) for disposal year round. Call for more information. 3. Contact the [facility] for the next [facility] sponsored prescription drug collection event. , [phone], or [phone]; Note that many narcotic pain relievers also contain Tylenol/acetaminophen. Please ensure that your total dose of acetaminophen from all sources does not exceed 3 g (3000 mg) per day.
[2021-06-22] MEDS: KETOROLAC 60 MG/2 ML VIAL IM STA (13:20)
[2021-06-22] MEDS: HYDROmorphone 1 MG/ML CARPUJECT IM STA (13:20)
[2021-06-22 13:38] VITALS: BP 153/91
== END 2021-06-22 13:36 | disposition home or self-care (01) ==
LOC: ED 10:16
DX: M54.12 Radiculopathy, cervical region (principal); E11.8 Type 2 diabetes mellitus with unspecified complications; Z79.4 Long term (current) use of insulin; F17.200 Nicotine dependence, unspecified, uncomplicated; F20.9 Schizophrenia, unspecified
CPT/HCPCS: 96372; 99283; J1170

== ENCOUNTER 2021-07-22 14:19 | Outpatient (CLI) | payer OTHER ==
--- NOTE | 2021-07-22 15:47 | MRI Report ---
PROCEDURE: Cervical Spine W/O INDICATIONS: CERVICAL RADICULOPATHY TECHNIQUE: Noncontrast sagittal T1 spin echo and T2 fast spin echo, sagittal STIR, foraminal oblique sagittal T2 fast spin echo, and axial gradient echo or T2 fast spin echo through the cervical spine. COMPARISON: None. FINDINGS: Image quality: Excellent. Alignment and Curvature: There is normal bony alignment. Bone Marrow: Marrow demonstrates normal overall signal. Mild reactive signal throughout the endplat es of the mid/lower cervical spine. Spinal Cord: Visualized spinal cord has normal size and signal. No cerebellar tonsillar herniation. Paraspinous Soft Tissues: No paravertebral masses. Prevertebral soft tissues are normal in thicknes s. C2-C3: Moderate disc desiccation. Mild facet and uncovertebral hypertrophy bilaterally. No significa nt canal stenosis. Mild left foraminal stenosis. No right foraminal stenosis. C3-C4: Moderate disc desiccation. Mild diffuse disc bulge. Mild facet and uncovertebral hypertrophy bilaterally. Mild canal stenosis. Mild bilateral foraminal stenosis. C4-C5: Moderate disc desiccation. Mild diffuse disc bulge. Mild facet and uncovertebral hypertrophy bilaterally. Mild canal stenosis. Moderate left and mild right foraminal stenosis. C5-C6: Moderate disc desiccation. Mild diffuse disc bulge. Mild facet and uncovertebral hypertrophy bilaterally. Mild canal stenosis. Mild bilateral foraminal stenosis. C6-C7: Moderate disc desiccation. Moderate diffuse disc bulge with superimposed left posterolateral and far lateral protrusion. Mild facet and uncovertebral hypertrophy bilaterally. Moderate to severe canal stenosis. Minimal cord flattening. Severe bilateral foraminal stenosis with bilateral C7 nerve root compression. C7-T1: Moderate disc desiccation. Mild diffuse disc bulge. Mild facet and uncovertebral hypertrophy bilaterally. No significant canal stenosis. Mild bilateral foraminal stenosis. IMPRESSION: 1. Multilevel degenerative disc and facet disease, as well as uncovertebral hypertrophy. 2. Multilevel canal stenoses, worst at C6-C7 where there is minimal cord flattening. 3. Multilevel foraminal stenoses, worst at C6-C7 where there is associated intraforaminal nerve root compression. Recommend correlation with clinical symptoms to ascertain relevance of this finding. Reviewed by: Pb Schofield MD on 07/22/2021 3:46 PM PST Approved by: Pb Schofield MD on 07/22/2021 3:46 PM PST Station ID: [id number]
== END 2021-07-22 14:20 | disposition home or self-care (01) ==
LOC: DI 14:19
PROVIDERS: ATTEND Family Medicine
DX: M47.22 Other spondylosis with radiculopathy, cervical region (principal); M47.23 Other spondylosis with radiculopathy, cervicothoracic region; M50.11 Cervical disc disorder with radiculopathy, high cervical region; M48.02 Spinal stenosis, cervical region

== ENCOUNTER 2023-02-21 08:33 | Emergency (ER) | payer OTHER ==
[2023-02-21] MEDS ORDERED: SULFAMETH/TRIMETH DS 800/160 MG TABLET PO STA (08:53)
[2023-02-21] MEDS ORDERED: BUFFERED LIDOCAINE 10 ML SYRINGE SUBQ STA (08:53)
--- NOTE | 2023-02-21 08:53 | ED Physician Documentation ---
History of Present Illness - Stated complaint Stated Complaint: RT UNDERARM BOIL - Chief complaint Chief Complaint: General - History obtained from History obtained from: Patient - Additonal information Additional information: 53-year-old gentleman with diabetes has had about a weeks worth of increasingly painful abscess in the right axilla without fevers. He was sent here from the walk-in clinic for incision and drainage, potentially with sedation, but unfortunately he is driving and cannot get a ride. PD PAST MEDICAL HISTORY - Past Medical History Cardiovascular: High cholesterol Respiratory: None Neuro: Tremors Endocrine/Autoimmune: Type 2 diabetes, HyPOthyroidism GI: Ulcers : Benign prostate hypertrophy HEENT: Chronic hearing loss Psych: Anxiety, Bipolar disorder Musculoskeletal: Osteoarthritis, Chronic back pain Derm: None - Past Surgical History Past Surgical History: Yes Ortho: Arthroscopic surgery - Present Medications Home Medications: Ambulatory Orders Medication Instructions Recorded Confirmed Alprazolam [Xanax] 6 mg PO DAILY 10/14/17 09/30/20 Atorvastatin [Lipitor] 10 mg PO DAILY 10/14/17 09/30/20 Divalproex Sodium [Depakote] 1,000 mg PO BID 10/14/17 09/30/20 Lidocaine Patch 5% [Lidoderm Patch] 1 patch TOP DAILY PRN 10/14/17 09/30/20 Zolpidem Tartrate [Ambien] 20 mg PO DAILY PM 10/14/17 09/30/20 Cyclobenzaprine [Flexeril] 10 mg PO TID PRN #20 tab 09/30/20 Insulin Aspart [NovoLOG] 5 units SQ TID 09/30/20 09/30/20 Sitagliptin Phos/Metformin HCl 1 each PO BID 09/30/20 09/30/20 [Janumet 50-1,000 mg Tablet] predniSONE [Deltasone] 40 mg PO DAILY #6 tab 09/30/20 Oxycodone HCl/Acetaminophen 1 - 2 each PO Q6H PRN #14 tablet 06/22/21 [Percocet 5-325 mg Tablet] Oxycodone HCl/Acetaminophen 1 - 2 each PO Q6H PRN #14 tablet 02/21/23 [Percocet 5-325 mg Tablet] Sulfamethox/Trimeth 800/160 1 each PO BID #14 tablet 02/21/23 [Bactrim Ds 800/160] - Allergies Allergies/Adverse Reactions: Allergies Allergy/AdvReac Type Severity Reaction Status Date / Time cephalexin [From Keflex] Allergy Anaphylaxis Verified 06/22/21 10:33 chocolate flavor Allergy Unknown Verified 06/22/21 10:33 Penicillins Allergy Anaphylaxis Verified 06/22/21 10:33 bees Allergy Unknown Uncoded 06/22/21 10:33 - Social History Does the pt smoke?: Yes Smoking Status: Current every day smoker Does the pt drink ETOH?: No Does the pt have substance abuse?: No - Immunizations Immunizations are current?: Yes PD ED PE NORMAL - Vitals Vital signs reviewed: Yes - General General: Alert and oriented X 3, No acute distress - Derm Derm: Normal color, Warm and dry - Extremities Extremities: Other (Large pointed abscess in the right axilla. No pain out of proportion to exam. There is cellulitis. No limited range of motion of the arm.) - Neuro Neuro: Alert and oriented X 3, Normal speech Results - Vitals Vitals: Vital Signs - 24 hr 02/21/23 08:41 Temperature 36.6 C Heart Rate 74 Respiratory 18 Rate Blood Pressure 147/76 H O2 Saturation 99 Oxygen O2 Source Room air Procedures - Abscess I&D (location) R axilla Preparation: Betadine, Lidocaine 1% Incision: Incised with scalpel, Purulent drainage, Loculations broken, Packed, Culture obtained Other: Pt tolerated well, Dressing applied, Antibiotic prescribed Departure - Departure Disposition: 01 Home, Self Care Clinical Impression: Abscess of right axilla Condition: Good Record reviewed to determine appropriate education?: Yes Instructions: ED Abscess IandD Prescriptions: Sulfamethox/Trimeth 800/160 [Bactrim Ds 800/160] 1 each PO BID #14 tablet Oxycodone HCl/Acetaminophen [Percocet 5-325 mg Tablet] 1 - 2 each PO Q6H PRN #14 tablet PRN Reason: pain Comments: I sent your prescription electronically to the [facility] pharmacy at the [address] of [address] [address] [address] [facility] in [place]. We are performing a wound culture, the results should be done in 48-72 hours. If antibiotic change is necessary we will call you. Return if worse in the meantime, especially if you develop increased pain, fevers, cannot keep down the medication. Otherwise follow-up with your physician in approximately 2-3 days. I am prescribing a short course of narcotic pain medication for you. These are potentially dangerous and addictive medications that should be used carefully. These medications may constipate you. Take an uwiz-whq-xvpgkjr stool softener (docusate) twice daily with plenty of water while taking these medications. If you go 24 hours without a bowel movement, take jnuk-kro-adxrmgx miralax, per package instructions. Do not drink or drive while taking these medications. If you received narcotic or sedating medications while in the emergency department, do not drive for 24 hours. Store this medication in a safe, secure place and out of reach of children. It is a violation of federal law to give or sell this medication to another person or to use in a manner other than prescribed. The ED will not refill narcotic prescriptions, including prescriptions lost or stolen. To dispose of unwanted medications: 1. [facility] provides a [facility] box for medication in pill form only (no liquids) 8:00 am to 4:30 p.m. Tuesday-Tuesday in the lobby of the [facility], [address] [place] [address]. Empty pills into ziplock bag before disposal. Call [phone] for information. 2.[employer] is a free service available to all [facility] residents. Go to [email or web address] Note that many narcotic pain relievers also contain Tylenol/acetaminophen. Please ensure that your total dose of acetaminophen from all sources does not exceed 3 g (3000 mg) per day. Forms: PCP List
[2023-02-21 09:44] VITALS: BP 127/83
== END 2023-02-21 09:48 | disposition home or self-care (01) ==
LOC: ED 08:33
DX: L02.411 Cutaneous abscess of right axilla (principal); F17.200 Nicotine dependence, unspecified, uncomplicated
CPT/HCPCS: 10061; 87070; 87205; 99283; A9270

== ENCOUNTER 2023-05-17 08:20 | Outpatient (CLI) | payer OTHER ==
[2023-05-17 11:47] LABS: BASOPHILS # (AUTO) 0.1 10^3/uL (0.0-0.1); BASOPHILS % (AUTO) 0.6 %; EOSINOPHILS # (AUTO) 0.2 10^3/uL (0.0-0.7); EOSINOPHILS % (AUTO) 1.4 %; HCT - HEMATOCRIT 44.6 % (42.0-52.0); HGB - HEMOGLOBIN 14.2 g/dL (14.0-18.0); LYMPHOCYTES # (AUTO) 6.6 10^3/uL (1.5-3.5); LYMPHOCYTES % (AUTO) 41.1 %; MEAN CORPUSCULAR HGB CONC 31.8 g/dL (32.0-36.0); MEAN PLATELET VOLUME 12.6 fL (7.4-11.4); MONOCYTES # (AUTO) 1.3 10^3/uL (0.0-1.0); MONOCYTES % (AUTO) 8.2 %; NEUTROPHILS # (AUTO) 7.7 10^3/uL (1.5-6.6); NEUTROPHILS % (AUTO) 47.6 %; PLT - PLATELET COUNT 169 10^3/uL (130-450); RED CELL DISTRIBUTION WIDTH 14.2 % (12.0-15.0); WHITE BLOOD COUNT 16.2 x10^3/uL (4.8-10.8)
[2023-05-17 12:04] LABS: ALBUMIN 4.3 g/dL (3.2-5.5); ALBUMIN/GLOBULIN RATIO 1.7 (1.0-2.2); ALKALINE PHOSPHATASE 53 IU/L (42-121); ALT ALANINE AMINOTRANSFERASE 8 IU/L (10-60); AST ASPARTATE AMINOTRANSFERASE 11 IU/L (10-42); BILIRUBIN,TOTAL 0.4 mg/dL (0.2-1.0); BUN - BLOOD UREA NITROGEN 14 mg/dL (6-20); CALCIUM 9.8 mg/dL (8.5-10.3); CARBON DIOXIDE - CO2 29 mmol/L (21-32); CHLORIDE 103 mmol/L (101-111); CHOL/HDL RATIO 6.9 (<5.0); CHOLESTEROL 208 mg/dL; CREATININE 0.8 mg/dL (0.6-1.3); GFR - MDRD 101 (>89); GLUCOSE 130 mg/dL (74-104); HDL CHOLESTEROL 30 mg/dL; LDL CHOLESTEROL,CALCULATED 116 mg/dL; LDL/HDL RATIO 3.9 (<3.6); POTASSIUM 4.6 mmol/L (3.5-4.5); SODIUM 138 mmol/L (135-145); TOTAL PROTEIN 6.9 g/dL (6.4-8.9); TRIGLYCERIDES 310 mg/dL (48-352); VALPROIC ACID (DEPAKOTE) 98.2 ug/mL; VLDL CHOLESTEROL 62 mg/dL
[2023-05-17 12:09] LABS: CREATININE,URINE 143.6 mg/dL; MICROALBUM/CREATININE RATIO,UR 64.8 ug/mg (<30.0); MICROALBUMIN,URINE 9.3 mg/dL
[2023-05-17 12:12] LABS: ESTIMATED AVERAGE GLUCOSE 140 mg/dL (70-100); HEMOGLOBIN A1c% 6.5 % (4.27-6.07)
[2023-05-17 12:19] LABS: THYROID STIMULATING HORMONE 4.64 uIU/mL (0.34-5.60)
[2023-05-17 12:31] LABS: WBC MORPHOLOGY (MULTIPLE) 2+ REACTIVE LYMPHS (NORMAL)
[2023-05-17 12:32] LABS: DIFFERENTIAL COMMENT MANUAL=AUTO DIFF
== END 2023-05-17 08:21 | disposition home or self-care (01) ==
LOC: LAB.N 08:20
PROVIDERS: ATTEND Nurse Practitioner Acute Care
DX: E11.9 Type 2 diabetes mellitus without complications (principal); Z13.228 Encounter for screening for other metabolic disorders; Z13.220 Encounter for screening for lipoid disorders; Z13.1 Encounter for screening for diabetes mellitus; Z13.29 Encounter for screening for other suspected endocrine disorder; Z13.0 Encounter for screening for diseases of the blood and blood-forming organs and certain disorders involving the immune mechanism; Z79.899 Other long term (current) drug therapy
CPT/HCPCS: 36415; 80053; 80061; 80164; 82043; 82570; 83036; 83721; 84443; 85025

== ENCOUNTER 2023-05-18 07:56 | Outpatient (CLI) | payer OTHER ==
--- NOTE | 2023-05-18 08:40 | XRAY Report ---
PROCEDURE: Shoulder 3 View LT INDICATIONS: PAIN IN LEFT SHOULDER,DIABETES MELLITUS TECHNIQUE: 4 views of the shoulder were acquired. COMPARISON: Left shoulder radiographs 04/28/2020. FINDINGS: Bones: No fractures or dislocations. No suspicious bony lesions. Visualized ribs appear intact. Mild acromioclavicular joint osteoarthrosis Soft tissues: No suspicious soft tissue calcifications. The visualized lungs are within normal limi ts. IMPRESSION: No acute osseous abnormality. Mild acromioclavicular osteoarthrosis. If pain persists with conservati ve management, consider further evaluation with cross-sectional imaging such as MRI. Reviewed by: Anel Thomson MD on 05/18/2023 8:39 AM PDT Approved by: Anel Thomson MD on 05/18/2023 8:39 AM PDT Station ID: [id number]
--- NOTE | 2023-05-18 14:33 | XRAY Report ---
PROCEDURE: Foot 3 View LT INDICATIONS: PAIN IN LEFT SHOULDER,DIABETES MELLITUS TECHNIQUE: 3 views of the foot were acquired. COMPARISON: None. FINDINGS: Bones: No fractures or dislocations. No suspicious bony lesions. Soft tissues: No suspicious soft tissue calcifications or masses. IMPRESSION: No acute bony abnormality. Reviewed by: Amanda Salgado MD on 05/18/2023 2:32 PM PDT Approved by: Amanda Salgado MD on 05/18/2023 2:32 PM PDT Station ID: [id number]
== END 2023-05-18 07:57 | disposition home or self-care (01) ==
LOC: DI 07:56
PROVIDERS: ATTEND Nurse Practitioner Acute Care
DX: M79.675 Pain in left toe(s) (principal); E11.9 Type 2 diabetes mellitus without complications; M19.012 Primary osteoarthritis, left shoulder

== ENCOUNTER 2023-06-02 13:15 | Outpatient (CLI) | payer OTHER ==
--- NOTE | 2023-06-02 15:13 | XRAY Report ---
PROCEDURE: Shoulder 1 View LT INDICATIONS: LEFT SHOULDER PAIN AXIAL VIEW ONLY TECHNIQUE: 1 views of the shoulder were acquired. COMPARISON: 3 views. Of the left shoulder from the same date FINDINGS: Bones: No fractures or dislocations. No suspicious bony lesions. Visualized ribs appear intact. Soft tissues: No suspicious soft tissue calcifications. The visualized lungs are within normal limi ts. IMPRESSION: No acute bony abnormality. If pain persists with conservative management, consider repeat radiographs in 10-14 days or cross-sectional imaging. Reviewed by: Ezekiel Figueroa MD on 06/02/2023 3:12 PM PDT Approved by: Ezekiel Figueroa MD on 06/02/2023 3:12 PM PDT Station ID: [id number]
== END 2023-06-02 23:59 | disposition home or self-care (01) ==
LOC: DI.WOS 13:15
PROVIDERS: ATTEND Physician Assistant Surgical
DX: M25.512 Pain in left shoulder (principal)

== ENCOUNTER 2023-06-07 10:40 | Outpatient (CLI) | payer OTHER ==
--- NOTE | 2023-06-07 15:26 | CT Report ---
PROCEDURE: Low Dose Lung Cancer Screen INDICATIONS: SCREENING FOR LUNG CA TECHNIQUE: A CT scan of the chest was performed. Intravenous contrast media was not administered. Images were re corded and evaluated at appropriate window settings. Reformats: axial MIP of the chest, coronal and s agittal. For radiation dose reduction, the following was used: automated exposure control, adjustment of mA and/or kV according to patient size. COMPARISON: None. FINDINGS: Image quality: Excellent. Prior cancer history: Melanoma Lungs and pleura: No pleural effusions. No pneumothorax. There are some small bilateral 1 to 2 mm pu lmonary nodular densities. No large pulmonary mass lesion or focal lung infiltrate is seen.. Mediastinum: Heart size is normal. No pericardial effusion. No large vessel abnormality. No mediastin al adenopathy by size criteria. Coronary artery and atherosclerotic calcifications are present. Chest wall and lower neck: Thyroid is unremarkable. No axillary or supraclavicular adenopathy by size . Bones: No aggressive osseous abnormality. Upper Abdomen: Unremarkable. IMPRESSION: Lung RAD: 2 - Benign. Recommendation: Continue annual screening in 12 Months with LDCT Non-Lung Significant Findings: Coronary Arterial Calcification - Moderate or Severe. Reviewed by: Renny Lindsay MD on 06/07/2023 3:24 PM PST Approved by: Renny Lindsay MD on 06/07/2023 3:24 PM PST Station ID: [id number]
== END 2023-06-07 10:41 | disposition home or self-care (01) ==
LOC: DI 10:40
PROVIDERS: ATTEND Nurse Practitioner Acute Care
DX: Z12.2 Encounter for screening for malignant neoplasm of respiratory organs (principal); I25.10 Atherosclerotic heart disease of native coronary artery without angina pectoris

== ENCOUNTER 2023-08-10 09:36 | Outpatient (CLI) | payer OTHER ==
[2023-08-10 09:56] LABS: BASOPHILS % (AUTO) 0.6 %; EOSINOPHILS % (AUTO) 1.1 %; HCT - HEMATOCRIT 40.9 % (42.0-52.0); HGB - HEMOGLOBIN 13.2 g/dL (14.0-18.0); LYMPHOCYTES % (AUTO) 39.3 %; MEAN CORPUSCULAR HEMOGLOBIN 28.9 pg (27.0-31.0); MEAN CORPUSCULAR HGB CONC 32.3 g/dL (32.0-36.0); MEAN CORPUSCULAR VOLUME 89.7 fL (80.0-94.0); MEAN PLATELET VOLUME 10.2 fL (7.4-11.4); MONOCYTES % (AUTO) 7.9 %; NEUTROPHILS % (AUTO) 49.9 %; PLT - PLATELET COUNT 146 10^3/uL (130-450); RED BLOOD COUNT 4.56 10^6/uL (4.70-6.10); RED CELL DISTRIBUTION WIDTH 14.2 % (12.0-15.0)
[2023-08-10 10:24] LABS: ALBUMIN 3.9 g/dL (3.2-5.5); ALBUMIN/GLOBULIN RATIO 1.4 (1.0-2.2); ALKALINE PHOSPHATASE 49 IU/L (42-121); ALT ALANINE AMINOTRANSFERASE 7 IU/L (10-60); AST ASPARTATE AMINOTRANSFERASE 10 IU/L (10-42); BILIRUBIN,TOTAL 0.5 mg/dL (0.2-1.0); BUN - BLOOD UREA NITROGEN 11 mg/dL (6-20); CALCIUM 9.4 mg/dL (8.5-10.3); CARBON DIOXIDE - CO2 30 mmol/L (21-32); CHLORIDE 102 mmol/L (101-111); CHOL/HDL RATIO 6.3 (<5.0); CHOLESTEROL 188 mg/dL; CREATININE 0.7 mg/dL (0.6-1.3); GFR - MDRD 118 (>89); GLUCOSE 130 mg/dL (74-104); HDL CHOLESTEROL 30 mg/dL; LDL CHOLESTEROL,CALCULATED 115 mg/dL; LDL/HDL RATIO 3.8 (<3.6); POTASSIUM 5.1 mmol/L (3.5-4.5); SODIUM 135 mmol/L (135-145); TOTAL PROTEIN 6.6 g/dL (6.4-8.9); TRIGLYCERIDES 213 mg/dL (48-352); VLDL CHOLESTEROL 43 mg/dL
[2023-08-10 10:26] LABS: CREATININE,URINE 120.4 mg/dL; MICROALBUM/CREATININE RATIO,UR 18.3 ug/mg (<30.0); MICROALBUMIN,URINE 2.2 mg/dL
[2023-08-10 17:11] LABS: SLIDE REVIEW? Indicated
[2023-08-10 21:32] LABS: ABNORMAL LYMPHS % (MANUAL) 0 %; BAND NEUTROPHILS % (MANUAL) 0 %
[2023-08-10 21:33] LABS: DIFFERENTIAL COMMENT MANUAL DIFFERENTIAL; EOSINOPHILS # (MANUAL) 0.8 10^3/uL (0-0.7); LYMPHOCYTES % (MANUAL) 25 %; MONOCYTES # (MANUAL) 0.9 10^3/uL (0.0-1.0); NEUTROPHILS # (MANUAL) 7.3 10^3/uL (1.5-6.6); PLATELET ESTIMATE, MANUAL NORMAL (130-450,000) (NORMAL); PLATELET MORPHOLOGY NORMAL APPEARANCE (NORMAL); RBC MORPHOLOGY (MULTIPLE) NORMAL APPEARANCE (NORMAL); REACTIVE LYMPHS % (MANUAL) 6 %; WBC MORPHOLOGY (MULTIPLE) NORMAL APPEARANCE (NORMAL)
== END 2023-08-10 09:37 | disposition home or self-care (01) ==
LOC: LAB 09:36
PROVIDERS: ATTEND Nurse Practitioner Acute Care
DX: E78.5 Hyperlipidemia, unspecified (principal); E11.9 Type 2 diabetes mellitus without complications; Z79.899 Other long term (current) drug therapy; D72.829 Elevated white blood cell count, unspecified
CPT/HCPCS: 36415; 80053; 80061; 82043; 82570; 83721; 85025; 87798

== ENCOUNTER 2023-08-23 08:00 | Outpatient (CLI) | payer OTHER ==
[2023-08-23 20:08] LABS: BILIRUBIN,URINE NEGATIVE (NEGATIVE); GLUCOSE, URINE (UA) NEGATIVE (NEGATIVE); KETONES,URINE (UA) NEGATIVE (NEGATIVE); LEUKOCYTE ESTERASE, URINE NEGATIVE (NEGATIVE); NITRITE,URINE NEGATIVE (NEGATIVE); OCCULT BLOOD,URINE SMALL (NEGATIVE); PROTEIN,URINE TRACE mg/dL (NEGATIVE); UROBILINOGEN,URINE 0.2 (NORMAL) E.U./dL (NORMAL)
[2023-08-23 20:27] LABS: BACTERIA,URINE None Seen /HPF (None Seen); CLARITY,URINE HAZY (CLEAR); SQUAMOUS EPITHELIAL CELL,UR NONE SEEN (<= Few); WBC,URINE 0-3 /HPF (0-3)
== END 2023-08-23 23:59 | disposition home or self-care (01) ==
LOC: LAB.F 08:00
PROVIDERS: ATTEND Nurse Practitioner Acute Care
DX: R82.998 Other abnormal findings in urine (principal)
CPT/HCPCS: 81001; 87086

== ENCOUNTER 2023-09-08 08:00 | Outpatient (CLI) | payer OTHER ==
--- NOTE | 2023-09-08 21:45 | XRAY Report ---
PROCEDURE: Chest 2V INDICATIONS: ACUTE COUGH TECHNIQUE: 2 views of the chest were acquired. COMPARISON: Chest x-ray 04/28/2020 FINDINGS: Surgical changes and devices: Presumed wireless pacer. Lungs and pleura: No pleural effusions or pneumothorax. Lungs are clear. Mediastinum: Mediastinal contours appear normal. Heart size is enlarged. Bones and chest wall: No suspicious bony lesions. Overlying soft tissues appear unremarkable. IMPRESSION: No acute cardiopulmonary process. Reviewed by: Amanda Salgado MD on 09/08/2023 9:44 PM PST Approved by: Amanda Salgado MD on 09/08/2023 9:44 PM [facility] Station ID: [id number]
== END 2023-09-08 08:15 | disposition home or self-care (01) ==
LOC: DI.N 08:00
PROVIDERS: ATTEND Physician Assistant Medical
DX: R05.1 Acute cough (principal)

== ENCOUNTER 2023-09-23 07:58 | Outpatient (CLI) | payer OTHER ==
[2023-09-23 12:17] LABS: ESTIMATED AVERAGE GLUCOSE 189 mg/dL (70-100); HEMOGLOBIN A1c% 8.2 % (4.27-6.07)
[2023-09-23 12:34] LABS: VALPROIC ACID (DEPAKOTE) 9.9 ug/mL
[2023-09-23 12:46] LABS: CALCIUM 9.8 mg/dL (8.5-10.3); CREATININE 1.1 mg/dL (0.6-1.3); CRP - C-REACTIVE PROTEIN 1.1 mg/dL (<0.5); POTASSIUM 5.6 mmol/L (3.5-4.5)
== END 2023-09-23 07:59 | disposition home or self-care (01) ==
LOC: LAB.N 07:58
PROVIDERS: ATTEND Nurse Practitioner
DX: E11.9 Type 2 diabetes mellitus without complications (principal); E87.5 Hyperkalemia; F31.9 Bipolar disorder, unspecified; D72.829 Elevated white blood cell count, unspecified
CPT/HCPCS: 36415; 80048; 80164; 83036; 85651; 86140

== ENCOUNTER 2023-10-13 08:00 | Outpatient (CLI) | payer OTHER ==
--- NOTE | 2023-10-13 19:39 | XRAY Report ---
PROCEDURE: Foot 3 View LT INDICATIONS: LEFT FOOT PAIN TECHNIQUE: 4 views of the foot were acquired. COMPARISON: Left foot radiographs 05/18/2023 FINDINGS: Bones: No acute fracture. Subtle lucency at the first digit distal phalanx seen only on one projecti on. This could be the sequelae of prior fracture. No dislocations. Mild degenerative changes. No michi picious bony lesions. Soft tissues: No suspicious soft tissue calcifications or masses. IMPRESSION: No acute fracture. Mild degenerative changes. Possible remote fracture at the first digit distal phalanx. Reviewed by: Andrew Wang MD on 10/13/2023 7:38 PM PDT Approved by: Andrew Wang MD on 10/13/2023 7:38 PM PDT Station ID: [id number]
== END 2023-10-13 23:59 | disposition home or self-care (01) ==
LOC: DI.WOS 08:00
PROVIDERS: ATTEND Orthopaedic Surgery
DX: M19.072 Primary osteoarthritis, left ankle and foot (principal)

== ENCOUNTER 2023-11-01 07:18 | Emergency (ER) | payer OTHER ==
--- NOTE | 2023-11-01 07:35 | ED Physician Documentation ---
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 Yesterday he fell out of the back of his van. He landed on his left hip and left elbow. States he bumped his head did not lose consciousness. Does not take blood thinners. The hip is doing fine he is a little banged up but can walk pretty well. His left elbow is pretty miserable with pain. Any flexion or extension causes significant discomfort. No numbness or tingling distally. No pain or injury in the shoulder wrist or fingers. Past medical history: Diabetes, bipolar disorder, heavy smoker. Review of Systems Cardiac: denies: Chest pain / pressure Respiratory: denies: Dyspnea Neurologic: denies: Focal weakness, Numbness, Confused, Altered mental status PD PAST MEDICAL HISTORY - Past Medical History Cardiovascular: High cholesterol Respiratory: None Neuro: Tremors Endocrine/Autoimmune: Type 2 diabetes, HyPOthyroidism GI: Ulcers : Benign prostate hypertrophy HEENT: Chronic hearing loss Psych: Anxiety, Bipolar disorder Musculoskeletal: Osteoarthritis, Chronic back pain Derm: None - Past Surgical History Past Surgical History: Yes Ortho: Arthroscopic surgery - Present Medications Home Medications: Ambulatory Orders Medication Instructions Recorded Confirmed Atorvastatin [Lipitor] 10 mg PO DAILY 10/14/17 11/01/23 Alprazolam [Xanax] 3 mg PO TID 09/23/23 11/01/23 Propranolol [Inderal] 60 mg PO TID 09/23/23 11/01/23 Suvorexant [Belsomra] 20 mg PO DAILY PM 09/23/23 11/01/23 Divalproex Sodium [Depakote] 4,000 mg PO DAILY 11/01/23 11/01/23 HYDROcod/ACETAM 5/325 [[place] 5/325] 1 - 2 tablet PO Q6H PRN #10 tablet 11/01/23 Insulin Lispro [Humalog] 1 unit SUBQ DAILY 11/01/23 11/01/23 - Allergies Allergies/Adverse Reactions: Allergies Allergy/AdvReac Type Severity Reaction Status Date / Time cephalexin [From Keflex] Allergy Anaphylaxis Verified 11/01/23 07:35 chocolate flavor Allergy Unknown Verified 11/01/23 07:35 clindamycin Allergy Hives Verified 11/01/23 07:35 Penicillins Allergy Anaphylaxis Verified 11/01/23 07:35 bees Allergy Anaphylaxis Uncoded 11/01/23 07:35 - Social History Does the pt smoke?: Yes Smoking Status: Current every day smoker Does the pt drink ETOH?: No Does the pt have substance abuse?: No - Immunizations Immunizations are current?: Yes PD ED PE NORMAL - Vitals Vital signs reviewed: Yes - General General: Alert and oriented X 3, No acute distress - HEENT HEENT: Atraumatic, PERRL - Neck Neck: Supple, no meningeal sign, No bony TTP - Cardiac Cardiac: RRR, No murmur - Respiratory Respiratory: No respiratory distress - Abdomen Abdomen: Normal bowel sounds - Extremities Extremities: Other Results - Vitals Vitals: Vital Signs - 24 hr 11/01/23 07:21 Temperature 36.2 C L Heart Rate 69 Respiratory 16 Rate Blood Pressure 151/80 H O2 Saturation 98 Oxygen O2 Source Room air - Rads (name of study) Left elbow x-ray Relevant Findings:: Final report received, EMP independent interpretation of test (No obvious fracture or deformity. No fat pad. Soft tissue swelling present.), Other PD Medical Decision Making - ED course ED course: Patient presents with elbow pain and swelling after fall. Evaluation reveals pain limited to the elbow. X-rays are reviewed and are negative for fracture as below. FINDINGS: Bones: No fractures or dislocations. No suspicious bony lesions. Soft tissues: No effusion. Small grouping of punctate calcifications along the dorsal aspect of the olecranon, presumably dystrophic calcification or venous phleboliths. Soft tissue swelling of the dorsal elbow. IMPRESSION: Soft tissue swelling of the dorsal elbow, without displaced fracture. Will José Manuel wrap the elbow and give him a sling for comfort. Small prescription for pain medication at home. Refer to PCP. Departure - Departure Disposition: 01 Home, Self Care Clinical Impression: Fall Qualifiers: Encounter type: initial encounter Qualified Code(s): W19.XXXA - Unspecified fall, initial encounter Left elbow contusion Qualifiers: Encounter type: initial encounter Qualified Code(s): S50.02XA - Contusion of left elbow, initial encounter Condition: Good Instructions: ED Contusion Elbow Ch Prescriptions: HYDROcod/ACETAM 5/325 [[place] 5/325] 1 - 2 tablet PO Q6H PRN #10 tablet PRN Reason: Pain Forms: PCP List
[2023-11-01] MEDS: HYDROcod/ACETAM 5/325 MG TABLET PO STA (07:59)
--- NOTE | 2023-11-01 08:40 | XRAY Report ---
PROCEDURE: Elbow 3+V LT INDICATIONS: fall, pain TECHNIQUE: 3 views of the elbow were acquired. COMPARISON: None. FINDINGS: Bones: No fractures or dislocations. No suspicious bony lesions. Soft tissues: No effusion. Small grouping of punctate calcifications along the dorsal aspect of the olecranon, presumably dystrophic calcification or venous phleboliths. Soft tissue swelling of the do rsal elbow. IMPRESSION: Soft tissue swelling of the dorsal elbow, without displaced fracture. Reviewed by: Rishabh Villegas MD on 11/01/2023 8:39 AM PDT Approved by: Rishabh Villegas MD on 11/01/2023 8:39 AM PDT Station ID: [id number]
[2023-11-01 09:03] VITALS: BP 145/84; O2SAT 96
== END 2023-11-01 09:03 | disposition home or self-care (01) ==
LOC: ED 07:18
DX: S50.02XA Contusion of left elbow, initial encounter (principal); W17.89XA Other fall from one level to another, initial encounter; E78.00 Pure hypercholesterolemia, unspecified; E11.9 Type 2 diabetes mellitus without complications; E03.9 Hypothyroidism, unspecified; N40.0 Benign prostatic hyperplasia without lower urinary tract symptoms; Z79.01 Long term (current) use of anticoagulants; Z79.899 Other long term (current) drug therapy; F17.200 Nicotine dependence, unspecified, uncomplicated
CPT/HCPCS: 1040M; 73080; 99283; A9270

== ENCOUNTER 2024-01-02 07:00 | Outpatient (CLI) | payer OTHER | END 2024-01-02 23:59 | disposition home or self-care (01) | LOC: LAB.S 07:00 | PROVIDERS: ATTEND Nurse Practitioner Acute Care | DX: M25.422 Effusion, left elbow (principal) | CPT/HCPCS: 87070; 87075 ==

== ENCOUNTER 2024-01-23 07:30 | Outpatient (CLI) | payer OTHER ==
[2024-01-23 07:44] LABS: BASOPHILS % (AUTO) 0.4 %; EOSINOPHILS # (AUTO) 0.1 10^3/uL (0.0-0.7); HGB - HEMOGLOBIN 13.5 g/dL (14.0-18.0); LYMPHOCYTES # (AUTO) 3.2 10^3/uL (1.5-3.5); LYMPHOCYTES % (AUTO) 35.8 %; MEAN CORPUSCULAR HEMOGLOBIN 29.5 pg (27.0-31.0); MEAN CORPUSCULAR HGB CONC 32.9 g/dL (32.0-36.0); MEAN CORPUSCULAR VOLUME 89.7 fL (80.0-94.0); MEAN PLATELET VOLUME 10.3 fL (7.4-11.4); MONOCYTES # (AUTO) 0.7 10^3/uL (0.0-1.0); MONOCYTES % (AUTO) 7.3 %; NEUTROPHILS # (AUTO) 4.9 10^3/uL (1.5-6.6); NEUTROPHILS % (AUTO) 54.7 %; PLT - PLATELET COUNT 132 10^3/uL (130-450); RED BLOOD COUNT 4.57 10^6/uL (4.70-6.10); RED CELL DISTRIBUTION WIDTH 14.1 % (12.0-15.0); WHITE BLOOD COUNT 8.9 x10^3/uL (4.8-10.8)
[2024-01-23 08:03] LABS: BILIRUBIN,URINE NEGATIVE (NEGATIVE); GLUCOSE, URINE (UA) NEGATIVE (NEGATIVE); KETONES,URINE (UA) NEGATIVE (NEGATIVE); LEUKOCYTE ESTERASE, URINE NEGATIVE (NEGATIVE); NITRITE,URINE NEGATIVE (NEGATIVE); OCCULT BLOOD,URINE NEGATIVE (NEGATIVE); PROTEIN,URINE NEGATIVE (NEGATIVE); UROBILINOGEN,URINE 0.2 (NORMAL) E.U./dL (NORMAL)
[2024-01-23 08:04] LABS: CLARITY,URINE CLEAR (CLEAR)
[2024-01-23 08:10] LABS: THYROID STIMULATING HORMONE 5.83 uIU/mL (0.34-5.60)
[2024-01-23 08:14] LABS: BACTERIA,URINE Few /HPF (None Seen); RBC,URINE 0-5 /HPF (0-5); SQUAMOUS EPITHELIAL CELL,UR NONE SEEN (<= Few); WBC,URINE 0-3 /HPF (0-3)
[2024-01-23 08:16] LABS: ALBUMIN 3.9 g/dL (3.2-5.5); ALBUMIN/GLOBULIN RATIO 1.8 (1.0-2.2); ALKALINE PHOSPHATASE 62 IU/L (42-121); ALT ALANINE AMINOTRANSFERASE 7 IU/L (10-60); AST ASPARTATE AMINOTRANSFERASE 12 IU/L (10-42); BILIRUBIN,TOTAL 0.6 mg/dL (0.2-1.0); BUN - BLOOD UREA NITROGEN 7 mg/dL (6-20); CALCIUM 9.5 mg/dL (8.5-10.3); CARBON DIOXIDE - CO2 28 mmol/L (21-32); CHLORIDE 101 mmol/L (101-111); CHOL/HDL RATIO 8.5 (<5.0); CHOLESTEROL 178 mg/dL; GFR - MDRD 78 (>89); GLUCOSE 144 mg/dL (74-104); HDL CHOLESTEROL 21 mg/dL; LDL CHOLESTEROL,CALCULATED 115 mg/dL; LDL/HDL RATIO 5.5 (<3.6); SODIUM 134 mmol/L (135-145); TOTAL PROTEIN 6.1 g/dL (6.4-8.9); TRIGLYCERIDES 209 mg/dL (48-352); VALPROIC ACID (DEPAKOTE) 98.9 ug/mL; VLDL CHOLESTEROL 42 mg/dL
[2024-01-23 08:38] LABS: MICROALBUM/CREATININE RATIO,UR 13.3 ug/mg (<30.0); MICROALBUMIN,URINE 2.6 mg/dL
[2024-01-23 10:13] LABS: ESTIMATED AVERAGE GLUCOSE 171 mg/dL (70-100); HEMOGLOBIN A1c% 7.6 % (4.27-6.07)
== END 2024-01-23 07:31 | disposition home or self-care (01) ==
LOC: LAB 07:30
PROVIDERS: ATTEND Nurse Practitioner
DX: E11.65 Type 2 diabetes mellitus with hyperglycemia (principal); E78.2 Mixed hyperlipidemia; E87.5 Hyperkalemia; E11.9 Type 2 diabetes mellitus without complications; Z79.899 Other long term (current) drug therapy
CPT/HCPCS: 36415; 80053; 80061; 80164; 81001; 82043; 82570; 83036; 83721; 84439; 84443; 85025; 87086

== ENCOUNTER 2024-02-01 08:00 | Outpatient (CLI) | payer OTHER ==
[2024-02-01 16:08] LABS: BILIRUBIN,URINE NEGATIVE (NEGATIVE); GLUCOSE, URINE (UA) NEGATIVE (NEGATIVE); KETONES,URINE (UA) TRACE mg/dL (NEGATIVE); LEUKOCYTE ESTERASE, URINE NEGATIVE (NEGATIVE); NITRITE,URINE NEGATIVE (NEGATIVE); OCCULT BLOOD,URINE NEGATIVE (NEGATIVE); PH,URINE 6.5 PH (5.0-7.5); PROTEIN,URINE NEGATIVE (NEGATIVE); UROBILINOGEN,URINE 0.2 (NORMAL) E.U./dL (NORMAL)
[2024-02-01 16:10] LABS: CLARITY,URINE CLEAR (CLEAR)
[2024-02-01 16:16] LABS: BACTERIA,URINE None Seen /HPF (None Seen); MUCUS,URINE Few Strands; RBC,URINE 0-5 /HPF (0-5); SQUAMOUS EPITHELIAL CELL,UR NONE SEEN (<= Few); WBC,URINE 0-3 /HPF (0-3)
== END 2024-02-01 23:59 | disposition home or self-care (01) ==
LOC: LAB 08:00
PROVIDERS: ATTEND Urology
DX: R31.9 Hematuria, unspecified (principal)
CPT/HCPCS: 81001; 87086